=== PATIENT | male | born 1995 ===

== ENCOUNTER 2017-01-23 01:19 | Emergency (ER) | payer SELFPAY ==
[2017-01-23 01:26] VITALS: BP 134/78; PULSE 108; RESP 16; TEMP 97.5; O2SAT 100
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
== END 2017-01-23 02:30 ==
LOC: H.ER 01:19
DX: S00.83XA Contusion of other part of head, initial encounter (principal); Y92.89 Other specified places as the place of occurrence of the external cause; F43.20 Adjustment disorder, unspecified